=== PATIENT | male | born 1980 | race Caucasian/White ===

== ENCOUNTER → 2017-12-14 16:11 | Outpatient (CLI) | payer OTHER, SELFPAY ==
--- NOTE | 2017-12-14 16:45 | MRI_ITS ---
STUDY: MRI CERVICAL SPINE WITHOUT CONTRAST REASON FOR EXAM: Male, 37 years old. Neck pain and left-sided arm pain. TECHNIQUE: Standardized fat and water weighted pulse sequences were obtained in the sagittal and axial planes. Several images are limited by patient motion. COMPARISON: Radiographs of the neck dated June 01, 2017. FINDINGS: Normal foramen magnum and brainstem-cervical cord junction. Normal craniovertebral junction. Normal anterior atlantoaxial articulation. Normal odontoid process. There is straightening of the normal cervical lordosis. Normal vertebral bodies and posterior osseous elements. C2-3: Normal endplates. Normal disc height, signal and morphology. Normal central canal and intervertebral neural foramina. C3-4: Normal endplates. Normal disc height, signal and morphology. Normal central canal. There is mild narrowing of bilateral intervertebral neural foramina. There is uncovertebral and facet joint arthropathy. C4-5: Normal endplates. Normal disc height, signal and morphology. Normal central canal. There is severe right-sided neural foraminal narrowing or probable nerve impingement. There is moderate left-sided neural foraminal narrowing. There is uncovertebral and facet joint arthropathy. C5-6: Normal endplates. Normal disc height, signal and morphology. Normal central canal and intervertebral neural foramina. C6-7: There is a broad central disc protrusion with mild central acquired canal stenosis. There is bilateral neural foraminal narrowing, greater on the left with potential left-sided nerve impingement. There is uncovertebral and facet joint arthropathy. Patient motion limits the quality of images at this level. C7-T1: Normal endplates. Normal disc height, signal and morphology. Normal central canal and intervertebral neural foramina. Normal cervical cord. There is no demonstrated cervical cord syrinx cavity. Normal visualized soft tissue structures. MRI/Spine Cervical (Routine) IMPRESSION: 1. Technically limited MRI due to patient motion. 2. Multilevel degenerative disc disease and degenerative arthropathy of the cervical spine with the most severe changes at C6-7 with acquired canal stenosis, neural foraminal narrowing and potential nerve impingement, as described. Electronically Signed: Dionne Sher MD at 10:57 EDT , Service support ,
== END ==
PROVIDERS: Family Provider Family Medicine; PCP Family Medicine
DX: M47.22 Other spondylosis with radiculopathy, cervical region (principal)
CPT/HCPCS: 72141

== ENCOUNTER → 2022-06-14 | Outpatient (CLI) | payer OTHER, SELFPAY ==
[2022-06-14 21:48] LABS: ALB/GLOB Ratio 1.2 RATIO (0.9-2.4); AST(SGOT) 31 U/L (15-37); Alanine Aminotransfer ALT/SGPT 66 U/L (16-61); Albumin, Serum 4.4 g/dL (3.2-5.0); Alkaline Phosphatase 77 U/L (45-117); Anion Gap 10 (5-15); BUN 20 mg/dL (7-18); BUN/Creat Ratio 21.5 RATIO (10-20); Calcium,Total 9.2 mg/dL (8.5-10.1); Chloride 104 mmol/L (98-107); Cholesterol 126 mg/dL (200); Creatinine, Serum 0.93 mg/dL (0.70-1.30); EST Glomerular Filtration Rate 94 mL/min (>60); Est Glom Filt Rate - Afr Amer 114 mL/min (>60); Globulin 3.7 g/dL (2.2-4.2); Glucose 154 mg/dL (74-106); High Density Lipoprotein 37 mg/dL; Protein, Total 8.1 g/dL (6.4-8.2); Sodium Level 136 mmol/L (136-145); Triglycerides 241 mg/dL; Very Low Density Lipoprotein 48 mg/dL (5-40)
[2022-06-14 21:55] LABS: Absolute Lymphocyte Count 3.24 X10^3/uL (0.83-4.51); Absolute Neutrophil Count 4.2 X10^3/uL (2.0-7.7); Basophil# 0.11 X10^3/uL; Basophil% 1.3 % (0-1); Eosinophil# 0.32 X10^3/uL; Eosinophils% 3.7 % (0-5); Hematocrit 54.2 % (40-54); Lymphocyte # 3.24 X10^3/ul (0.83-4.51); Lymphocyte % 37.7 % (19-41); Mean Corp Hgb Conc 34.1 g/dL (32-36); Mean Corpuscular Hgb 29.8 pg (27.0-32.0); Mean Corpuscular Volume 87.4 fL (80-94); Mean Platelet Vol. 10.3 fl (6.2-12.0); Monocyte# 0.71 X10^3/uL; Monocyte% 8.3 % (0-10); NRBC Flagged by Analyzer 0 % (0-5); Neutrophil # 4.18 X10^3/uL (2.7-7.7); Neutrophil % 48.5 % (47-70); Platelet Count 229 K/mm3 (150-450); RBC Distribution Width SD 38.1 fl (35.1-43.9); White Blood Count 8.6 K/mm3 (4.4-11.0)
[2022-06-14 22:17] LABS: Hemoglobin 18.5 g/dL (13.0-16.5)
[2022-06-14 22:26] LABS: Hemoglobin A1c 8.5 % (3.8-5.6)
== END | disposition home or self-care (01) ==
PROVIDERS: PCP Family Medicine; Visit Provider Nurse Practitioner
DX: I10 Essential (primary) hypertension (principal); E11.65 Type 2 diabetes mellitus with hyperglycemia; E78.5 Hyperlipidemia, unspecified
CPT/HCPCS: 80053; 80061; 83036; 85025

== ENCOUNTER → 2023-07-12 | Outpatient (CLI) | payer OTHER, SELFPAY ==
--- OUTSIDE RECORDS SUMMARY | 2023-07-12 20:01 | XMS RPT_ITS | CCD ---
Author Name Unknown Address [address] [place] [address] Organization [facility] Care Team Providers Care Head Of Research & Insights Name Role Phone Unavailable Primary Care Provider Ivett Raymundo MD, Isaac Salvador Primary Care Provider Allergies Allergy Classification Reported Allergen(s) Allergy Type Date of Onset Reaction(s) Facility (2 sources) Lisinopril Drug Allergy 03-11-2021 Cough [facility] Work Phone: Medications Current Medications Medication Drug Class(es) Dates Sig (Normalized) Sig (Original) atorvastatin 20 mg oral tablet (2 sources) HMG-CoA Reductase Inhibitor Start: 03-11-2021 End: 04-25-2022 take 1 tablet by mouth once daily at bedtime for hyperlipidemia atorvastatin (LIPITOR) 20 mg tablet Indications: Type 2 diabetes mellitus without complication, without long-term current use of insulin (HCC) Take 1 tablet by mouth daily at bedtime. For cholesterol. 90 tablet 1 10/27/2021 04/25/2022 Active Completed/Discontinued Medications Medication Drug Class(es) Dates Sig (Normalized) Sig (Original) sildenafil 50 mg oral tablet (2 sources) Phosphodiesterase 5 Inhibitor Start: 07-14-2020 sildenafil (VIAGRA) 50 mg tablet Indications: Penile erection impairment Take 1 tablet by mouth as needed. 30 tablet 1 07/14/2020 Active Problems Problem Classification Problem Date Documented Date Episodic/Chronic Acquired foot deformities (2 sources) Hammer toe; Translations: [Other hammer toe(s) (acquired), right foot] Onset: 10-27-2021 Chronic Diabetes mellitus without complication (1 source) Type 2 diabetes mellitus without complication; Translations: [Type 2 diabetes mellitus without complications] Chronic Other nutritional; endocrine; and metabolic disorders (3 sources) Body mass index 30+ - obesity; Translations: [Obesity, unspecified] 03-15-2019 Chronic Residual codes; unclassified (2 sources) Obstructive sleep apnea syndrome; Translations: [Obstructive sleep apnea (adult) (pediatric)] Onset: 10-27-2021 Chronic Residual codes; unclassified (3 sources) Chews tobacco ; Translations: [Tobacco use] 03-15-2019 Episodic Spondylosis; intervertebral disc disorders; other back problems (2 sources) Degeneration of cervical intervertebral disc; Translations: [Other cervical disc degeneration, unspecified cervical region] 03-15-2019 Chronic Spondylosis; intervertebral disc disorders; other back problems (2 sources) Spinal stenosis in cervical region; Translations: [Spinal stenosis, cervical region] 03-15-2019 Episodic Unclassified (2 sources) Type 2 diabetes mellitus without complication; Translations: [Diabetes mellitus type 2, uncontrolled, without complications] Onset: 03-24-2019 03-24-2019 Results Test Name Value Interpretation Reference Range Facil ity Vital Signs Date Time Vital Sign Value Performing Clinician Faci lity 10-27-2021 16:25-0400 Body weight 157.67 kg Isaac Raymundo MD Work Phone: [facility] 10-27-2021 16:25-0400 Diastolic blood pressure 78 mm[Hg] Isaac Raymundo MD Work Phone: [facility] 10-27-2021 16:25-0400 Heart rate 90 /min Isaac Raymundo MD Work Phone: [facility] 10-27-2021 16:25-0400 Respiratory rate 16 /min Isaac Raymundo MD Work Phone: [facility] 10-27-2021 16:25-0400 SaO2% (BldA) [Mass fraction] 96 % Isaac Raymundo MD Work Phone: [facility] 10-27-2021 16:25-0400 Systolic blood pressure 118 mm[Hg] Isaac Raymundo MD Work Phone: [facility] Encounters Encounter Date Encounter Type Care Provider Facility Start: 10-27-2021 End: 10-27-2021 Patient encounter procedure Isaac Raymundo MD Work Phone: [facility] Procedures Date Procedure Procedure Detail Performing Clinician Start: 07-19-2020 Mri any jt upper extremity w/o contrast matrl Christopher Santa Work Phone: Start: 03-15-2019 Adult depression screening assessment Isaac Raymundo MD Work Phone: Plan of Treatment Date Care Activity Detail Author Start: 03-15-2029 DTaP/Tdap/Td vaccine (2 - Td) DTaP/Tdap/Td vaccine (2 - Td) [place], [place] Start: 03-15-2029 Urine microalbumin profile DTAP,TDAP,TD (2 - Td or Tdap) [facility] Start: 10-27-2022 3 comp foot exam completed DIABETIC FOOT EXAM [facility] Start: 10-27-2022 ANNUAL PCP TEAM TRANSFORMER SHOP SUPERVISOR NEL DISEASE VISIT ANNUAL PCP TEAM CHRONIC DISEASE VISIT [facility] Start: 10-27-2022 COVID-19 VACCINE (1) COVID-19 VACCIN E (1) [facility] Immunizations Immunization Date Immunization Notes Care Provider Fa alma deliaty 03-15-2019 tetanus toxoid, redu mirta diphtheria toxoid, and acellular pertussis vaccine, adsorbed Isaac Raymundo MD Work Phone: [facility] Payers Date Payer Category Payer Unknown MMO MMO [employer] [id number] 2021-Present [phone] [address] [place] [address] PPO [id number] 2020 Private Health Insurance [employer] A ETNA CHOICE POS II [id number] 2020-Present [phone] [address] [place] [address] POS [id number] Social History Date Type Detail Facility [facility] [place], [place] Start: 1980 Sex Assigned At Not on file [place] Start: 03-15-2019 Tobacco smoking stat [facility] Never smoked tobacco [facility] Start: 03-15-2019 Tobacco use and exposure User of smokeless tobacco [facility] History of tobacco use Chews Tobacco [facility] Start: 03-11-2021 End: 10-27-2021 Alcohol intake Current drinker of alcohol (finding) [facility] Start: 03-11-2021 End: 10-27-2021 Alcohol intake [facility] Start: 10-17-2021 End: 10-27-2021 Exposure to SARS-CoV-2 (event) Not sure [facility] Medical Equipment Procedure Code Equipment Code Equipment Origin al Text Equipment Identifier Dates Start: 05-10-2020 Progress note 10-27-2021 Note Date & Type Note Facility 10-27-2021 Note HNO ID: [id number] Author: Isaac Raymundo MD Service: ? Author Type: Physician Type: Progress Notes Filed: 10/28/2021 8:46 AM Note Text: Chief Complaint Patient presents with: Follow Up: for meds and labs HPI Froilan Sanders is a 41 year old male who presents here today for Above Complaints.. DIABETES MELLITUS: Mr. Sanders was last seen 8 months ago. Since our last visit he denies excessive thirst or increased frequency of urination, numbness, tingling or pain in extremities, new or unusual visual symptoms and low sugar/hypoglycemic reactions. Follows a diabetic diet generally not very much. He is compliant with medication(s) and is tolerating med(s) without any side effects. He reports checking his glucose on a every other day schedule with sugars in the fasting 150-220 range and 120-150 after work. Patient's last HgA1C was Hemoglobin A1C (%) Date Value 03/11/2021 7.5 07/28/2020 8.2 ) Last Ophthalmology exam was within the past [address] Galan Last Podiatry exam was more than 12 months ago. Patient states that he was diagnosed with KUSUM about [address] Luna's office. Is not compliant with CPAP, but does have one at home. Records not available today. Admits to daytime somnolence but denies snoring. Not sure what his weight was then, but may have been closer to 400 lbs. Taking statin without side effects. Still chewing tobacco and is thinking about quitting. Not wanting help today. Refusing Pneumovax and COVID vaccine. Past medical history, appointments, medications, allergies reviewed. Previous Medical History PAST MEDICAL HISTORY Diagnosis Date - Amputation of hand, right (HCC) 2007 2/[address] Clark - Carpal tunnel syndrome, left - Cervical stenosis of spine dr scherer - Chewing tobacco use - DDD (degenerative disc disease), cervical - Obesity (BMI 30-39.9) - KUSUM (obstructive sleep apnea) - Rotator cuff tear, left minor tear - Type 2 diabetes mellitus (HCC) Previous Surgical History PAST SURGICAL HISTORY Procedure Laterality Date - AMPUTATION OF HAND 2007 - PAST SURGICAL HISTORY OF 2001 maxillary sinus polyp removal - TONSILLECTOMY AND ADENOIDECTOMY HX childhood Family History FAMILY HISTORY Problem Relation Age of Onset - Diabetes Mother - Diabetes Father - Hypertension Father - Carotid Disease Father - other (aortic aneurysm) Father - No Known Problems Brother - Cancer Paternal Grandfather bone Patient Allergies ALLERGIES Allergen Reactions - Lisinopril Cough Current Medications Current Outpatient Medications on File Prior to Visit Medication Sig - empagliflozin (JARDIANCE) 25 mg tablet Take 1 tablet by mouth once daily. Take 1 tablet once daily in the morning - metFORMIN (GLUCOPHAGE) 1,000 mg tablet Take 1 tablet by mouth twice daily with meals. - losartan (COZAAR) 25 mg tablet Take 0.5 tablets by mouth once daily. (Patient taking differently: Take 25 mg by mouth every other day. ) - blood sugar diagnostic (BLOOD GLUCOSE TEST) test strip Test blood sugar(s) 2 times daily. Dx: Type 2 DM - Uncontrolled E11.65 Insulin: No - ONE TOUCH - sildenafil (VIAGRA) 50 mg tablet Take 1 tablet by mouth as needed. - Lancets lancets Test blood sugar(s) 2 times daily. Dx: Type 2 DM - Uncontrolled E11.65 Insulin: No - atorvastatin (LIPITOR) 20 mg tablet Take 1 tablet by mouth daily at bedtime. For cholesterol. No current facility-administered medications on file prior to visit. Social History Social History Tobacco Use - Smoking status: Never Smoker - Smokeless tobacco: Current User Types: Chew Substance Use Topics - Alcohol use: Yes Alcohol/week: 7.5 standard drinks Types: 3 Mixed Drinks per week - Drug use: Never Review of Symptoms REVIEW OF SYSTEMS GENERAL: No weight loss, malaise or fevers RESPIRATORY: Negative for cough, hemoptysis, wheezing, COPD, dyspnea or shortness of breath CARDIOVASCULAR: Negative for chest pain, leg swelling, hypertension, CHF or palpitations GI: No nausea, vomiting, or diarrhea SKIN: Negative for lesions, rash, and itching EXAM: BP 118/78 Pulse 90 Resp 16 Wt (!) 157.7 kg (347 lb 9.6 oz) SpO2 96% BMI 40.17 kg/m? General Appearance: Well appearing, alert, in no acute distress, well-hydrated, well nourished.. Skin: Skin color, texture, turgor normal, no suspicious rashes or lesions. Lungs: Lungs clear to auscultation. No wheezing, rhonchi, rales.. Heart: RRR without murmur, gallop, or rubs. No ectopy. Abdomen: Normal abdominal exam, Abdomen soft, non-tender. Bowel sounds normal. No masses, organomegaly. Extremities: No deformities, edema, skin discoloration, clubbing or cyanosis. Good capillary refill. Feet: Shoes and socks removed, No deformities, ulcers, calluses, normal distal pulses and sensitive to 10 gm monofilament. Hammertoes of 2nd and 3rd toes bilaterally Health Maintenance List COVID (more content not included)... [facility] History of Present illness Narrative 10-27-2021 Isaac Raymundo MD - 10/27/2021 4:32 PM EDT Note Date & Type Note Facility 10-27-2021 History of Presen t illness Narrative Chief Complaint Patient presents with: Follow Up: for meds and labs HPI Froilan Sanders is a 41 year old male who presents here today for Above Complaints.. DIABETES MELLITUS: Mr. Sanders was last seen 8 months ago. Since our last visit he denies excessive thirst or increased frequency of urination, numbness, tingling or pain in extremities, new or unusual visual symptoms and low sugar/hypoglycemic reactions. Follows a diabetic diet generally not very much. He is compliant with medication(s) and is tolerating med(s) without any side effects. He reports checking his glucose on a every other day schedule with sugars in the fasting 150-220 range and 120-150 after work. Patient's last HgA1C was Hemoglobin A1C (%) Date Value 03/11/2021 7.5 07/28/2020 8.2 ) Last Ophthalmology exam was within the past [address] Galan Last Podiatry exam was more than 12 months ago. Patient states that he was diagnosed with KUSUM about [address] Luna's office. Is not compliant with CPAP, but does have one at home. Records not available today. Admits to daytime somnolence but denies snoring. Not sure what his weight was then, but may have been closer to 400 lbs. Taking statin without side effects. Still chewing tobacco and is thinking about quitting. Not wanting help today. Refusing Pneumovax and COVID vaccine. Past medical history, appointments, medications, allergies reviewed. Previous Medical History PAST MEDICAL HISTORY Diagnosis Date Amputation of hand, right (HCC) 08/[address] Clark Carpal tunnel syndrome, left Cervical stenosis of spine dr scherer Chewing tobacco use DDD (degenerative disc disease), cervical Obesity (BMI 30-39.9) KUSUM (obstructive sleep apnea) Rotator cuff tear, left minor tear Type 2 diabetes mellitus (HCC) Previous Surgical History PAST SURGICAL HISTORY Procedure Laterality Date AMPUTATION OF HAND 2007 PAST SURGICAL HISTORY OF 2001 maxillary sinus polyp removal TONSILLECTOMY AND ADENOIDECTOMY HX childhood Family History FAMILY HISTORY Problem Relation Age of Onset Diabetes Mother Diabetes Father Hypertension Father Carotid Disease Father other (aortic aneurysm) Father No Known Problems Brother Cancer Paternal Grandfather bone Patient Allergies ALLERGIES Allergen Reactions Lisinopril Cough Current Medications Current Outpatient Medications on File Prior to Visit Medication Sig empagliflozin (JARDIANCE) 25 mg tablet Take 1 tablet by mouth once daily. Take 1 tablet once daily in the morning metFORMIN (GLUCOPHAGE) 1,000 mg tablet Take 1 tablet by mouth twice daily with meals. losartan (COZAAR) 25 mg tablet Take 0.5 tablets by mouth once daily. (Patient taking differently: Take 25 mg by mouth every other day. ) blood sugar diagnostic (BLOOD GLUCOSE TEST) test strip Test blood sugar(s) 2 times daily. Dx: Type 2 DM - Uncontrolled E11.65 Insulin: No - ONE TOUCH sildenafil (VIAGRA) 50 mg tablet Take 1 tablet by mouth as needed. Lancets lancets Test blood sugar(s) 2 times daily. Dx: Type 2 DM - Uncontrolled E11.65 Insulin: No atorvastatin (LIPITOR) 20 mg tablet Take 1 tablet by mouth daily at bedtime. For cholesterol. No current facility-administered medications on file prior to visit. Social History Social History Tobacco Use Smoking status: Never Smoker Smokeless tobacco: Current User Types: Chew Substance Use Topics Alcohol use: Yes Alcohol/week: 7.5 standard drinks Types: 3 Mixed Drinks per week Drug use: Never Review of Symptoms REVIEW OF SYSTEMS GENERAL: No weight loss, malaise or fevers RESPIRATORY: Negative for cough, hemoptysis, wheezing, COPD, dyspnea or shortness of breath CARDIOVASCULAR: Negative for chest pain, leg swelling, hypertension, CHF or palpitations GI: No nausea, vomiting, or diarrhea SKIN: Negative for lesions, rash, and itching EXAM: BP 118/78 Pulse 90 Resp 16 Wt (!) 157.7 kg (347 lb 9.6 oz) SpO2 96% BMI 40.17 kg/m General Appearance: Well appearing, alert, in no acute distress, well-hydrated, well nourished.. Skin: Skin color, texture, turgor normal, no suspicious rashes or lesions. Lungs: Lungs clear to auscultation. No wheezing, rhonchi, rales.. Heart: RRR without murmur, gallop, or rubs. No ectopy. Abdomen: Normal abdominal exam, Abdomen soft, non-tender. Bowel sounds normal. No masses, organomegaly. Extremities: No deformities, edema, skin discoloration, clubbing or cyanosis. Good capillary refill. Feet: Shoes and socks removed, No deformities, ulcers, calluses, normal distal pulses and sensitive to 10 gm monofilament. Hammertoes of 2nd and 3rd toes bilaterally Health Maintenance List COVID-19 VACCINE(1) Never done ONE PNEUMOVAX PRIOR TO AGE 64 Never done HEPATITIS C SCREENING Never done HIV SCREENING Never done DEPRESSION SCREENING due on 03/15/2020 DIABETIC FOOT EXAM due on 05/05/2021 URINE ALBUMIN:CREATININE RATIO due on 05/08/2021 LDL CHOLESTEROL due on 05/08/2021 HBA1C due on 09/11/2021 ANNUAL PCP TEAM CHRONIC DISEASE VISIT due on 03/11/2022 INFLUENZA(Season Ended) due on 03/16/2022 DILATED RETINAL EXAM due on 05/27/2022 DTAP,TDAP,TD(2 - Td or Tdap) due on 03/15/2029 MENINGOCOCCAL CONJUGATE Aged Out Data reviewed Component Latest Ref Rng & Units 03/11/2021 Protein, Total 6.3 - 8.0 g/dL 7.6 Albumin 3.9 - 4.9 g/dL 4.7 Calcium 8.5 - 10.2 mg/dL 10.2 Bilirubin, Total 0.2 - 1.3 mg/dL 0.5 Alkaline Phosphatase 38 - 113 U/L 65 AST 14 - 40 U/L 22 Glucose 74 - 99 mg/dL 135 (H) BUN 9 - 24 mg/dL 18 Creatinine 0.73 - 1.22 mg/dL 1.02 Sodium 136 - 144 mmol/L 139 Potassium 3.7 - 5.1 mmol/L 4.4 Chloride 97 - 105 mmol/L 103 CO2 22 - 30 mmol/L 22 Anion Gap 9 - 18 mmol/L 14 ALT 10 - 54 U/L 27 eGFR- >60 eGFR-All Other Races . >60 WBC 3.70 - 11.00 k/uL 7.34 RBC 4.20 - 6.00 m/uL 6.21 (H) Hemoglobin 13.0 - 17.0 g/dL 18.5 (H) Hematocrit 39.0 - 51.0 % 54.9 (H) MCV 80.0 - 100.0 fL 88.4 MCH 26.0 - 34.0 pG 29.8 MCHC 30.5 - 36.0 g/dL 33.7 RDW-CV 11.5 - 15.0 % 12.2 Platelet Count 150 - 400 k/uL 219 MPV 9.0 - 12.7 fL 10.7 Absolute nRBC <0.01 k/uL <0.01 Hemoglobin A1C 4.3 - 5.6 % 7.5 (H) Estimated Average Glucose mg/dL 169 Magnesium 1.7 - 2.3 mg/dL 2.0 Phosphorus 2.7 - 4.8 mg/dL 4.7 ASSESSMENT/PLAN: 1. Type 2 diabetes mellitus without complication, without long-term current use of insulin (HCC) - ICD9: 250.00, ICD10: E11.9 (primary diagnosis) poorly controlled, refusing new rx today. - Continue current medications - Blood glucose monitoring on a twice a day schedule - Encouraged regular aerobic exercise and weight loss - Daily Asprin therapy recommended - Follow up in 3 months, sooner should any other issues arise. - Discussed diabetic education issues of halfway diabetic complications, hypoglycemic symptoms, hyperglycemic symptoms, diet, medications- side effects and need for compliance, importance of exercise and importance of annual examinations with Opthalmology with patient. - ATORVASTATIN 20 MG TABLET - LOSARTAN 25 MG TABLET - METFORMIN 1,000 MG TABLET - EMPAGLIFLOZIN 25 MG TABLET 2. Hammertoes of both feet - ICD9: 735.4, ICD10: M20.41, M20.42 Recommend f/u with podiatry. Patient has appointment scheduled with Dr. Bailey in the next month. 3. KUSUM (obstructive sleep apnea) - ICD9: 327.23, ICD10: G47.33 Patient not using CPAP. Will complete pap titration to confirm settings. Discussed importance of nightly use as well as weight loss. - PAP TITRATION PSG (CPAP, BIPAP, ASV) 4. Obesity (BMI 30-39.9) - ICD9: 278.00, ICD10: E66.9 Stable - Behavioral intervention 5. Chewing tobacco use - ICD9: 305.1, ICD10: Z72.0 - Cessation encouraged. - Physiologic and physical aspects of tobacco addiction as well as strategies for quitting were discussed. - Counseling was given focusing on the harmful effects of this addiction especially given the patient's medical condition(s) which will be worsened because of the chemicals in tobacco. Isaac Raymundo MD documented in this encounter [facility] Note 10-04-2021 Telephone Encounter - Leonor Khan LPN - 10/04/2021 1:47 PM EDTTelephone Encounter - Leda Munoz - 09/30/2021 11:40 AM EDT Note Date & Type Note Facility 10-04-2021 Miscellaneous Notes Images from the original note were not included. This was completed 10/03/21 in [facility] and was approved. Leonor Khan LPN Froilan Sanders is calling Isaac Raymundo MD today to request a prior auth for Jardiance. Patient has been identified by name and birthdate. Duration of symptoms: N/A Person calling: self Call patient at: on cell [phone] (home) [phone] (cell) Was an appointment scheduled: Eunice Jonas Pss documented in this encounter [facility] Progress note 03-11-2021 Note Date & Type Note Facility 03-11-2021 Note HNO ID: [id number] Author: Isaac Raymundo MD Service: ? Author Type: Physician Type: Progress Notes Filed: 03/12/2021 9:58 AM Note Text: Chief Complaint Patient presents with: Consult: preop clearance surgery-03/14/21 HPI Froilan Sanders is a 40 year old male who presents here today for Above Complaints.. Patient to undergo left shoulder scope with rotator cuff repair vs SCR to be performed by Dr. Mondragon on 03/14 under general anesthesia. Has not had complications with anesthesia in the past. Able to climb flight of stairs without stopping due to SOB or chest pain. Admits to mild ankle swelling when standing for long periods of time and with hot weather. Denies chest pain, SOB, wheezing, claudication, weight loss, fever/chills. History of DM with Last A1c in July 23.2. Overdue for repeat labs. compliant with metformin and Jardiance. Checking his sugars BID. Fasting sugars in the 130-150 range. No longer on his VIKI due to cough. Not on statin. Past medical history, appointments, medications, allergies reviewed. Previous Medical History PAST MEDICAL HISTORY Diagnosis Date - Amputation of hand, right (HCC) 2007 2/[address] hand[address] Clark - Carpal tunnel syndrome, left - Cervical stenosis of spine dr scherer - Chewing tobacco use - DDD (degenerative disc disease), cervical - Obesity (BMI 30-39.9) - Rotator cuff tear, left minor tear - Type 2 diabetes mellitus (HCC) Previous Surgical History PAST SURGICAL HISTORY Procedure Laterality Date - AMPUTATION OF HAND 2007 - PAST SURGICAL HISTORY OF 2001 maxillary sinus polyp removal - TONSILLECTOMY AND ADENOIDECTOMY HX childhood Family History FAMILY HISTORY Problem Relation Age of Onset - Diabetes Mother - Diabetes Father - Hypertension Father - Carotid Disease Father - other (aortic aneurysm) Father - No Known Problems Brother - Cancer Paternal Grandfather bone Patient Allergies ALLERGIES No Known Allergies Current Medications Current Outpatient Medications on File Prior to Visit Medication Sig - lisinopril (ZESTRIL, PRINIVIL) 5 mg tablet Take 1 tablet by mouth once daily. (Patient not taking: Reported on 01/31/2021 ) - blood sugar diagnostic (BLOOD GLUCOSE TEST) test strip Test blood sugar(s) 2 times daily. Dx: Type 2 DM - Uncontrolled E11.65 Insulin: No - ONE TOUCH - empagliflozin (JARDIANCE) 25 mg tablet Take 1 tablet by mouth once daily. Take 1 tablet once daily in the morning - sildenafil (VIAGRA) 50 mg tablet Take 1 tablet by mouth as needed. - metFORMIN (GLUCOPHAGE) 1,000 mg tablet Take 1 tablet by mouth twice daily with meals. - Lancets lancets Test blood sugar(s) 2 times daily. Dx: Type 2 DM - Uncontrolled E11.65 Insulin: No No current facility-administered medications on file prior to visit. Social History Social History Tobacco Use - Smoking status: Never Smoker - Smokeless tobacco: Current User Types: Chew Substance Use Topics - Alcohol use: Yes Alcohol/week: 7.5 standard drinks Types: 3 Mixed Drinks per week - Drug use: Never Review of Symptoms REVIEW OF SYSTEMS GENERAL: No weight loss, malaise or fevers RESPIRATORY: Negative for cough, hemoptysis, wheezing, COPD, dyspnea or shortness of breath CARDIOVASCULAR: Negative for chest pain, leg swelling, hypertension, CHF or palpitations GI: No nausea, vomiting, or diarrhea SKIN: Negative for lesions, rash, and itching EXAM: BP 130/74 (BP Site: Left Arm, BP Position: Sitting, BP Cuff Size: Large Adult) Pulse 87 Temp 36.9 ?C (98.4 ?F) Resp 14 Ht 198.1 cm (6' 6 ) Wt (!) 155.6 kg (343 lb) SpO2 97% BMI 39.64 kg/m? General Appearance: Well appearing, alert, in no acute distress, well-hydrated, well nourished.. Skin: Skin color, texture, turgor normal, no suspicious rashes or lesions. Lungs: Lungs clear to auscultation. No wheezing, rhonchi, rales.. Heart: RRR without murmur, gallop, or rubs. No ectopy. Abdomen: Normal abdominal exam, Abdomen soft, non-tender. Bowel sounds normal. No masses, organomegaly. Extremities: No deformities, edema, skin discoloration, clubbing or cyanosis. Good capillary refill. . Health Maintenance List DILATED RETINAL EXAM Never done COVID-19 VACCINE(1) Never done ONE PNEUMOVAX PRIOR TO AGE 64 Never done HEPATITIS C SCREENING Never done HIV SCREENING Never done DEPRESSION SCREENING due on 03/15/2020 HBA1C due on 10/26/2020 INFLUENZA(1) due on 03/16/2021 DIABETIC FOOT EXAM due on 05/05/2021 URINE ALBUMIN:CREATININE RATIO due on 05/08/2021 LDL CHOLESTEROL due on 05/08/2021 ANNUAL PCP TEAM CHRONIC DISEASE VISIT due on 07/14/2021 DTAP,TDAP,TD(2 - Td or Tdap) due on 03/15/2029 [employer] Aged Out Data reviewed EKG: NSR at 84 bpm Component Latest Ref Rng AND Units 05/08/2020 07/28/2020 Protein, Total 6.3 - 8.0 g/dL 7.4 Albumin 3.9 - 4.9 g/dL 4.4 Calcium 8.5 - 10.2 mg/dL 9.3 Bilirubin, Total 0.2 - (more content not included)... [facility] Progress note 01-31-2021 Note Date & Type Note Facility 01-31-2021 Note HNO ID: [id number] Author: RT Khanh(R) Service: ? Author Type: Company Marker Type: Progress Notes Filed: 01/31/2021 5:08 PM Note Text: Radiology Service Progress Note PATIENT NAME: Froilan Sadners DATE OF SERVICE: January 31, 2021 TIME: 4:58 PM PATIENT IDENTITY VERIFICATION COMPLETED USING TWO (2) IDENTIFIERS: Name and Date of confirmed by patient verbally. FALL SCREENING: Has the patient had 2 falls in the last year or 1 fall with injury or currently using an Ambulatory Assistive Device (Walker, Cane, Wheelchair, Crutches, etc.)? No PATIENT GENDER DATA: Male PATIENT RELEVANT IMPLANT DATA REVIEWED: Yes RADIOLOGY DEPARTMENT: General X-ray: Exam(s) Completed: Lower Extremity X-Ray(s): Ankle, Left and Wt. Bearing PERIPHERAL IV DATA: Not applicable SIGNED BY: RT Khanh(R) January 31, 2021 4:58 PM [facility] Progress note 01-31-2021 Note Date & Type Note Facility 01-31-2021 Note HNO ID: [id number] Author: Gildardo Cutler APRN.[employer] Service: ? Author Type: Nurse Practitioner Type: Progress Notes Filed: 01/31/2021 5:49 PM Note Text: Subjective HPI HPI Froilan Sanders is a 40 year old male who presents today for CC of left ankle pain. This started 5 days . Has tried otc medication. Symptoms are worsened by walking. Risk factors, remote hx of injury to left ankle resulting in intermittent ankle pain/swelling over past 20 years. Denies injury for current symptoms. Denies numbness/tingling of left foot. Denies cp/sob. .Patient presents with: Leg Pain: left ankle pain x 5 days PAST MEDICAL HISTORY Diagnosis Date - Amputation of hand, right (HCC) 2007 2/[address] Clark - Carpal tunnel syndrome, left - Cervical stenosis of spine dr scherer - Chewing tobacco use - DDD (degenerative disc disease), cervical - Obesity (BMI 30-39.9) - Rotator cuff tear, left minor tear PAST SURGICAL HISTORY Procedure Laterality Date - AMPUTATION OF HAND 2007 - PAST SURGICAL HISTORY OF 2001 maxillary sinus polyp removal - TONSILLECTOMY AND ADENOIDECTOMY HX childhood ALLERGIES Patient has no known allergies. MEDICATIONS blood sugar diagnostic (BLOOD GLUCOSE TEST) test strip Test blood sugar(s) 2 times daily. Dx: Type 2 DM - Uncontrolled E11.65 Insulin: No - ONE TOUCH sildenafil (VIAGRA) 50 mg tablet Take 1 tablet by mouth as needed. metFORMIN (GLUCOPHAGE) 1,000 mg tablet Take 1 tablet by mouth twice daily with meals. Lancets lancets Test blood sugar(s) 2 times daily. Dx: Type 2 DM - Uncontrolled E11.65 Insulin: No lisinopril (ZESTRIL, PRINIVIL) 5 mg tablet Take 1 tablet by mouth once daily. empagliflozin (JARDIANCE) 25 mg tablet Take 1 tablet by mouth once daily. Take 1 tablet once daily in the morning FAMILY HISTORY Problem Relation Age of Onset - Diabetes Mother - Diabetes Father - Hypertension Father - Carotid Disease Father - other (aortic aneurysm) Father - No Known Problems Brother - Cancer Paternal Grandfather bone Social History Tobacco Use - Smoking status: Never Smoker - Smokeless tobacco: Current User Types: Chew Substance Use Topics - Alcohol use: Yes Alcohol/week: 7.5 standard drinks Types: 3 Mixed Drinks per week - Drug use: Never ROS Objective Blood pressure 142/86, pulse 83, temperature 36.8 ?C (98.2 ?F), resp. rate 20, weight (!) 154.2 kg (340 lb), SpO2 97 %. Physical Exam Constitutional: General: He is not in acute distress. Appearance: He is not toxic-appearing or diaphoretic. HENT: Head: Normocephalic and atraumatic. Cardiovascular: Pulses: Dorsalis pedis pulses are 2+ on the left side. Posterior tibial pulses are 2+ on the left side. Pulmonary: Effort: Pulmonary effort is normal. No accessory muscle usage or respiratory distress. Musculoskeletal: Left lower leg: Normal. Left ankle: Swelling present. No deformity, ecchymosis or lacerations. Tenderness present over the lateral malleolus and medial malleolus. Decreased range of motion. Legs: Neurological: Mental Status: He is alert and oriented to person, place, and time. ASSESSMENT/PLAN: 1. Acute left ankle pain - ICD9: 719.47, ICD10: M25.572 (primary diagnosis) -no bony abnormality noted on xray, possible overuse injury -Rest, Ice, Compression, Elevation discussed Hold medrol pack, if take if negative for dvt tomorrow -follow up with primary care if symptoms persist/worsen in 10-14 days - XR ANKLE GENERAL 3V AP/LAT/OBL LT IMPRESSION IMPRESSION: Bimalleolar soft tissue swelling. No acute bony process. ? Dictated by : DELIA SALES MD 2. Left leg swelling - ICD9: 729.81, ICD10: M79.89 Ultra sound tomorrow. -If you experience chest pain/shortness of breath go to ER - US LEG ARTERIAL PERIPH UNL VAS LAB Agrees to plan Gildardo Cutler APRN.[facility]AR[facility] Evaluation note Note Date & Type Note Facility documented in this encounter [facility] Summary Purpose Family History No Family History Records FoundNo Family History Records Found Advance Directives No Advanced Directives Records FoundNo Advanced Directives Records Found Additional Source Comments (unrecognized sect ion and content) No Status Records FoundNo Status Records Found INFORMATION SOURCE (unrecogn ized section and content) DATE CREATED AUTHOR AUTHOR'S LUPIS GIMENEZ 10/29/2021 [facility] Source Comments (unrecognize d section and content) In the event this informatio n is protected by the Federal Confidentiality of Alcohol and Drug Abuse Patient Records regulations: The Federal rules restrict any use of the information to criminally investigate or prosecute any alcohol or drug abuse patient.[facility] the event this information is protected by the Federal Confidentiality of Alcohol and Drug Abuse Patient Records regulations: The Federal rules restrict any use of the information to criminally investigate or prosecute any alcohol or drug abuse patient.[facility] Reason for Visit (unrecogniz ed section and content) Reason Comments Follow Up for meds and labs Care Teams (unrecognized sec tion and content) Head Of Research & Insights Relationship Specialty Start Date End Date Isaac Raymundo MD [address], [place] [id number] PCP - General Family Practice 03/15/19 FOR RECORDS PERTAINING TO PATIENTS WHO ARE OR HAVE BEEN ENROLLED IN A CHEMICAL DEPENDENCY/SUBSTANCEABUSE PROGRAM, SOME INFORMATION MAY BE OMITTED. This clinical summary was aggregated from multiple sources. Caution should be exercised in using it in the provision of clinical care. This summary normalizes information from multiple sources, and as a consequence, information in this document may materially change the coding, format and clinical context of patient data. In addition, data may be omitted in some cases. CLINICAL DECISIONS SHOULD BE BASED ON THE PRIMARY CLINICAL RECORDS. [facility], [facility]. provides no warranty or guarantee of the accuracy or completeness of information in this document.
[2023-07-12 20:17] LABS: Absolute Lymphocyte Count 2.53 X10^3/uL (0.83-4.51); Absolute Neutrophil Count 3.1 X10^3/uL (2.0-7.7); Basophil# 0.06 X10^3/uL; Basophil% 0.9 % (0-1); Eosinophil# 0.27 X10^3/uL; Eosinophils% 4.2 % (0-5); Hematocrit 54.1 % (40-54); Lymphocyte # 2.53 X10^3/ul (0.83-4.51); Lymphocyte % 39.3 % (19-41); Mean Corp Hgb Conc 33.5 g/dL (32-36); Mean Corpuscular Hgb 29.6 pg (27.0-32.0); Mean Corpuscular Volume 88.4 fL (80-94); Mean Platelet Vol. 10.4 fl (6.2-12.0); Monocyte# 0.49 X10^3/uL; Monocyte% 7.6 % (0-10); NRBC Flagged by Analyzer 0 % (0-5); Neutrophil # 3.08 X10^3/uL (2.7-7.7); Neutrophil % 47.8 % (47-70); Platelet Count 212 K/mm3 (150-450); RBC Distribution Width CV 12.3 % (11.6-14.6); RBC Distribution Width SD 40.1 fl (35.1-43.9); Red Blood Count 6.12 M/mm3 (4.6-6.2); White Blood Count 6.4 K/mm3 (4.4-11.0)
[2023-07-12 20:31] LABS: Hemoglobin 18.1 g/dL (13.0-16.5)
[2023-07-12 20:35] LABS: ALB/GLOB Ratio 1.2 RATIO (0.9-2.4); AST(SGOT) 25 U/L (15-37); Alanine Aminotransfer ALT/SGPT 44 U/L (16-61); Albumin, Serum 4.2 g/dL (3.2-5.0); Alkaline Phosphatase 78 U/L (45-117); Anion Gap 9 (5-15); BUN 18 mg/dL (7-18); BUN/Creat Ratio 19.3 RATIO (10-20); Calcium,Total 9.1 mg/dL (8.5-10.1); Chloride 105 mmol/L (98-107); Cholesterol 194 mg/dL (200); Creatinine, Serum 0.94 mg/dL (0.70-1.30); EST Glomerular Filtration Rate 93 mL/min (>60); Est Glom Filt Rate - Afr Amer 113 mL/min (>60); Globulin 3.5 g/dL (2.2-4.2); Glucose 153 mg/dL (74-106); High Density Lipoprotein 49 mg/dL; Potassium 4.1 mmol/L (3.5-5.1); Protein, Total 7.7 g/dL (6.4-8.2); Sodium Level 139 mmol/L (136-145); Triglycerides 325 mg/dL; Very Low Density Lipoprotein 65 mg/dL (5-40)
[2023-07-12 20:52] LABS: Hemoglobin A1c 7.9 % (3.8-5.6)
[2023-07-13 12:13] LABS: Pathologist Review Reviewed
== END | disposition home or self-care (01) ==
PROVIDERS: Visit Provider Nurse Practitioner
DX: I10 Essential (primary) hypertension (principal); E11.65 Type 2 diabetes mellitus with hyperglycemia; E78.5 Hyperlipidemia, unspecified
CPT/HCPCS: 80053; 80061; 83036; 85025

== ENCOUNTER → 2024-08-11 | Outpatient (CLI) | payer OTHER, SELFPAY ==
[2024-08-11 22:02] LABS: Absolute Lymphocyte Count 2.85 X10^3/uL (0.83-4.51); Absolute Neutrophil Count 3.6 X10^3/uL (2.0-7.7); Basophil# 0.12 X10^3/uL; Basophil% 1.6 % (0-1); Eosinophil# 0.36 X10^3/uL; Eosinophils% 4.8 % (0-5); Lymphocyte # 2.85 X10^3/ul (0.83-4.51); Lymphocyte % 37.8 % (19-41); Mean Corp Hgb Conc 34.6 g/dL (32-36); Mean Corpuscular Hgb 30.3 pg (27.0-32.0); Mean Corpuscular Volume 87.4 fL (80-94); Mean Platelet Vol. 10.3 fl (6.2-12.0); Monocyte# 0.63 X10^3/uL; Monocyte% 8.4 % (0-10); NRBC Flagged by Analyzer 0 % (0-5); Neutrophil # 3.56 X10^3/uL (2.7-7.7); Neutrophil % 47.3 % (47-70); Platelet Count 209 K/mm3 (150-450); RBC Distribution Width CV 12.2 % (11.6-14.6); RBC Distribution Width SD 38.9 fl (35.1-43.9); Red Blood Count 5.95 M/mm3 (4.6-6.2); White Blood Count 7.5 K/mm3 (4.4-11.0)
[2024-08-11 22:12] LABS: AST(SGOT) 25 U/L (15-37); Alanine Aminotransfer ALT/SGPT 43 U/L (16-61); Albumin, Serum 4.3 g/dL (3.2-5.0); Alkaline Phosphatase 68 U/L (45-117); Anion Gap 8 (5-15); BUN 21 mg/dL (7-18); BUN/Creat Ratio 21.4 RATIO (10-20); Calcium,Total 10.2 mg/dL (8.5-10.1); Chloride 104 mmol/L (98-107); Cholesterol 128 mg/dL (200); Creatinine, Serum 0.98 mg/dL (0.70-1.30); EST Glomerular Filtration Rate 88 mL/min (>60); Est Glom Filt Rate - Afr Amer 106 mL/min (>60); Globulin 4.1 g/dL (2.2-4.2); Glucose 143 mg/dL (74-106); High Density Lipoprotein 48 mg/dL; Protein, Total 8.4 g/dL (6.4-8.2); Sodium Level 137 mmol/L (136-145); Triglycerides 160 mg/dL; Very Low Density Lipoprotein 32 mg/dL (5-40)
[2024-08-15 09:43] LABS: Pathologist Review Reviewed
== END | disposition home or self-care (01) ==
PROVIDERS: PCP Nurse Practitioner; Referring Provider Nurse Practitioner; Visit Provider Nurse Practitioner
DX: E13.3 Other specified diabetes mellitus with ophthalmic complications (principal); E11.65 Type 2 diabetes mellitus with hyperglycemia; Z79.4 Long term (current) use of insulin; I15.2 Hypertension secondary to endocrine disorders; E78.1 Pure hyperglyceridemia
CPT/HCPCS: 80053; 80061; 85025